=== PATIENT | female | born 1980 | race Caucasian/White ===

== ENCOUNTER 2024-07-23 16:09 | Emergency (ER) | payer OTHER ==
[2024-07-23] MEDS: Acetaminophen 500 MG Tab PO ONE (16:20)
[2024-07-23] MEDS: Ondansetron 4 MG/2 ML SDV IVPUSH ONE (16:20)
[2024-07-23] MEDS: Morphine 4 MG/ML Syringe IVPUSH ONE (16:22)
[2024-07-23] MEDS: Sodium Chloride 0.9% 10 ML Syringe FLUSH PRN (16:30)
[2024-07-23 16:32] LABS: BASOPHILS ABSOLUTE AUTO 0.03 K/uL (0.00-0.20); BASOPHILS PERCENT AUTO 0.4 % (0.0-1.0); EOSINOPHILS PERCENT AUTO 1.3 % (0.0-6.0); HEMATOCRIT 42.9 % (37.0-47.0); HEMOGLOBIN 14.7 g/dL (12.0-16.0); IMMATURE GRAN ABSOLUTE AUTO 0.05 K/uL (0.00-0.05); IMMATURE GRAN PERCENT AUTO 0.7 % (0.0-0.4); LYMPHOCYTES ABSOLUTE AUTO 1.82 K/uL (1.00-4.80); LYMPHOCYTES PERCENT AUTO 24.3 % (24.0-44.0); MEAN CORPUSCULAR HEMOGLOBIN 31.1 pg (28.0-32.0); MEAN CORPUSCULAR HGB CONC 34.3 g/dL (32.0-36.0); MEAN CORPUSCULAR VOLUME 90.7 fL (83.0-99.0); MEAN PLATELET VOLUME 9.9 fL (9.4-12.3); MONOCYTES ABSOLUTE AUTO 0.39 K/uL (0.00-0.80); MONOCYTES PERCENT AUTO 5.2 % (0.0-8.0); NEUTROPHILS ABSOLUTE AUTO 5.09 K/uL (1.80-7.70); NEUTROPHILS PERCENT AUTO 68.1 % (41.0-71.0); PLATELET COUNT,PLT 202 K/uL (150-400); RED BLOOD CELL COUNT 4.73 M/uL (4.10-5.30); WHITE BLOOD CELL COUNT,WBC 7.48 K/uL (3.9-11.3)
[2024-07-23 16:46] LABS: A/G RATIO 1.2 (0.9-1.6); ALBUMIN 4.3 g/dL (3.4-5.0); BILIRUBIN TOTAL 0.3 mg/dL (0.2-1.0); CALCIUM 9.5 mg/dL (8.5-10.1); CARBON DIOXIDE,CO2 30.3 mmol/L (21.0-32.0); CREATININE 0.9 mg/dL (0.6-1.0); EST CRCL DRUG DOSING (CG) 78.38 mL/min; POTASSIUM,K 3.8 mmol/L (3.5-5.1)
[2024-07-23] MEDS: Ketorolac 30 MG/ML SDV IVPUSH ONE (17:06)
[2024-07-23] MEDS ORDERED: oxyCODONE 5 MG Tab PO PRN (17:09)
[2024-07-23] MEDS: Gabapentin 100 MG Cap PO ONE (17:11)
[2024-07-23] MEDS: Diphtheria,Pertussis(Acell),Tetanus Vaccine 0.5 ML Syringe IM ONE (17:35)
[2024-07-23] MEDS ORDERED: Ondansetron 4 MG/2 ML SDV IVPUSH ONE (17:49)
[2024-07-23] MEDS ORDERED: Propofol 200 MG/20 ML SDV IVPUSH PRN (17:49)
[2024-07-23] MEDS ORDERED: Lidocaine 2% 5 ML SDV INFILT ONE (17:50)
[2024-07-23 18:53] VITALS: BP 131/88; PULSE 67
[2024-07-23] MEDS: Iopamidol 755 MG/ML 500 ML Multipack Bottle IVPUSH STA (19:13)
== END 2024-07-23 18:52 | disposition home or self-care (01) ==
LOC: MW.ED 16:09
DX: S32.039A Unspecified fracture of third lumbar vertebra, initial encounter for closed fracture (principal); S29.8XXA Other specified injuries of thorax, initial encounter; S39.91XA Unspecified injury of abdomen, initial encounter; R07.89 Other chest pain; R06.02 Shortness of breath; M54.50 Low back pain, unspecified; Z79.899 Other long term (current) drug therapy; Z75.8 Other problems related to medical facilities and other health care; V80.010A Animal-rider injured by fall from or being thrown from horse in noncollision accident, initial encounter
CPT/HCPCS: 36415; 71045; 71260; 72125; 72128; 72131; 74177; 80053; 83690; 85025; 90471; 90715; 93005; 96374; 96375; 99285; A9270; J1885; J2270; J2405; J3490; Q9967; 93010

== ENCOUNTER 2024-12-15 07:54 | Day surgery (SDC) | payer BC, OTHER ==
[~2024-12-15 07:54] MED LIST: Sodium Chloride 0.9% 10 ML Syringe FLUSH PRN; Sodium Chloride 0.9% 2.5 ML Syringe FLUSH PRN; Sodium Chloride 0.9% 20 ML SDV IV PRN
[2024-12-15] MEDS: Lactated Ringers 1,000 ML IV SCH (08:20)
[2024-12-15] MEDS ORDERED: Propofol 200 MG/20 ML SDV ONE (08:28)
[2024-12-15] MEDS ORDERED: Sodium Chloride 0.9% 20 ML ONE (08:30)
[2024-12-15] MEDS ORDERED: dexmedeTOMIDine HCl 200 MCG/2 ML SDV ONE (08:30)
[2024-12-15 13:00] VITALS: BP 122/69; PULSE 70
== END 2024-12-15 10:45 | disposition home or self-care (01) ==
LOC: MW.SDS 07:54
PROVIDERS: ATTEND Surgery
DX: K29.50 Unspecified chronic gastritis without bleeding (principal); K31.7 Polyp of stomach and duodenum; K44.9 Diaphragmatic hernia without obstruction or gangrene; T18.2XXA Foreign body in stomach, initial encounter; K21.9 Gastro-esophageal reflux disease without esophagitis; Z79.899 Other long term (current) drug therapy; Z87.891 Personal history of nicotine dependence
CPT/HCPCS: 43239; 81025; J2704; J7120; 00731; J3490